=== PATIENT | male | born 1960 | race African-American/Black ===

== ENCOUNTER 2017-01-18 10:09 | Emergency (ER) | payer MEDICAID ==
[~2017-01-18] VITALS: Ht 172.7 cm; Wt 91.0 kg
[2017-01-18] MEDS ORDERED: PROCHLORPERAZINE 10MG/2ML VIAL IV STA ×2 (10:32→10:56)
[2017-01-18] MEDS ORDERED: DIPHENHYDRAMINE 50MG/ML VIAL IV ONE (10:45)
[2017-01-18 10:52] LABS: BASOPHILS % 0.4 % (0.0-2.0); HEMATOCRIT. 47.7 % (42.0-52.0); HEMOGLOBIN. 15.8 g/dL (14.0-18.0); LYMPHOCYTES % 20.7 % (20.0-50.0); MEAN CORPUSCULAR HEMOGLOBIN 30.6 pg (28.0-32.0); MEAN CORPUSCULAR VOLUME 92.2 fL (80.0-94.0); MEAN PLATELET VOLUME 7.3 fl (7.4-10.4); MONOCYTES % 7.1 % (2.0-8.0); NEUTROPHILS % 70.8 % (40.0-76.0); PLATELET 247 x1000/uL (130-400); RED BLOOD CELL COUNT 5.18 mill/uL (4.7-6.1); RED CELL DISTRIBUTION WIDTH 13.8 % (11.6-14.6)
[2017-01-18 11:10] LABS: CARBON DIOXIDE 28 mEq/L (21-32); CHLORIDE 97 mEq/L (98-107); ETHANOL BLOOD 122 mg/dL; TROPONIN I < 0.02 ng/mL (0.00-0.04)
[2017-01-18] MEDS ORDERED: IBUPROFEN 400MG TABLET PO ONE (13:00)
[2017-01-18] MEDS ORDERED: POTASSIUM CHLORIDE 20MEQ TABLET SR PO ONE (13:00)
[2017-01-18 14:15] VITALS: BP 109/62
== END 2017-01-18 14:19 | disposition home or self-care (01) ==
LOC: EDSEX 10:09 → ER 10:45
DX: R51 Headache (principal); I10 Essential (primary) hypertension
CPT/HCPCS: 36415; 70450; 80053; 83880; 84484; 85025; 93005; 96374; 96375; 99285; G0482; J0780; J1200; Z7610

== ENCOUNTER 2017-07-05 13:00 | Emergency (ER) | payer MEDICAID ==
[~2017-07-05] VITALS: Ht 172.7 cm; Wt 98.0 kg
[2017-07-05] MEDS ORDERED: IPRATROPIUM/ALBUTEROL 0.5-3(2.5)MG/3ML NEB HHN ONE (13:15)
[2017-07-05 13:38] LABS: BASOPHILS % 0.4 % (0.0-2.0); EOSINOPHILS % 0.1 % (0.0-5.0); HEMATOCRIT. 46.8 % (42.0-52.0); MEAN CORPUSCULAR HEMOGLOBIN 30.2 pg (28.0-32.0); MEAN CORPUSCULAR VOLUME 88.4 fL (80.0-94.0); MEAN PLATELET VOLUME 7.1 fl (7.4-10.4); MONOCYTES % 9.7 % (2.0-8.0); NEUTROPHILS % 56.8 % (40.0-76.0); PLATELET 265 x1000/uL (130-400); RED CELL DISTRIBUTION WIDTH 14.1 % (11.6-14.6)
[2017-07-05 13:41] LABS: PROTHROMBIN TIME 10.6 sec (9.4-11.6)
[2017-07-05 13:53] LABS: CARBON DIOXIDE 28 mEq/L (21-32); CHLORIDE 95 mEq/L (98-107); ETHANOL BLOOD 200 mg/dL; TROPONIN I < 0.02 ng/mL (0.00-0.04)
[2017-07-05 18:18] LABS: CLARITY URINE CLOUDY (CLEAR); COLOR URINE YELLOW (YELLOW); KETONES URINE TRACE (NEGATIVE); LEUKOCYTE ESTERASE URINE 3+ (NEGATIVE); NITRITE URINE NEGATIVE (NEGATIVE); OCCULT BLOOD URINE TRACE (NEGATIVE); PH URINE 6.5 (4.5-8.0); PROTEIN URINE NEGATIVE (NEGATIVE); SPECIFIC GRAVITY URINE 1.009 (1.005-1.030); UROBILINOGEN URINE 0.2 E.U./dL (0.2-1.0)
[2017-07-05 18:41] LABS: *AMPHETAMINES SCREEN URINE PRESUMTIVE POSITIVE (NEGATIVE); *BARBITURATES SCREEN URINE NEGATIVE (NEGATIVE); *BENZODIAZEPINES SCREEN URINE NEGATIVE (NEGATIVE); *COCAINE SCREEN URINE PRESUMTIVE POSITIVE (NEGATIVE); CANNABINOID URINE SCREEN NEGATIVE (NEGATIVE); METHADONE URINE SCREEN NEGATIVE (NEGATIVE); OPIATES URINE SCREEN NEGATIVE (NEGATIVE); PHENCYCLIDINE URINE SCREEN NEGATIVE (NEGATIVE)
[2017-07-05] MEDS ORDERED: CEFTRIAXONE SODIUM 250 MG/VIAL IM ONE (19:15)
[2017-07-05] MEDS ORDERED: AZITHROMYCIN 500 MG TABLET PO ONE (19:15)
[2017-07-05 19:50] VITALS: BP 109/65
[2017-07-10 08:19] LABS: CHLAMYDIA TRACHOMATIS NAA Negative (Negative); NEISSERIA GONORRHOEAE NAA Negative (Negative)
== END 2017-07-05 19:50 | disposition home or self-care (01) ==
LOC: ER 13:00
DX: S16.1XXA Strain of muscle, fascia and tendon at neck level, initial encounter (principal); N34.2 Other urethritis; A64 Unspecified sexually transmitted disease; K21.9 Gastro-esophageal reflux disease without esophagitis; R06.02 Shortness of breath; I10 Essential (primary) hypertension; F10.229 Alcohol dependence with intoxication, unspecified; F10.129 Alcohol abuse with intoxication, unspecified; X58.XXXA Exposure to other specified factors, initial encounter; Y93.89 Activity, other specified; Y92.89 Other specified places as the place of occurrence of the external cause; Y99.8 Other external cause status; R51 Headache
CPT/HCPCS: 36415; 71045; 72050; 80053; 80305; 81001; 83690; 83880; 84484; 85025; 85610; 87086; 87491; 87591; 93005; 94640; 96372; 99285; G0482; J0696; J7620

== ENCOUNTER 2017-10-23 14:50 | Emergency (ER) | payer MEDICAID ==
[~2017-10-23] VITALS: Ht 170.2 cm; Wt 75.0 kg
[2017-10-23] MEDS ORDERED: SODIUM CHLORIDE 0.9% 1,000 ML IV ONE ×2 (16:59→20:44)
[2017-10-23] MEDS ORDERED: ONDANSETRON HCL 4MG/2ML VIAL IV STA ×2 (16:59→20:48)
[2017-10-23] MEDS ORDERED: MORPHINE SULFATE 4 MG/ML CPJ (NOT FOR IM USE) IV STA ×2 (16:59→20:48)
[2017-10-23] MEDS ORDERED: ETOMIDATE 2MG/ML 10ML VIAL IV ONE ×2 (17:15→19:00)
[2017-10-23] MEDS ORDERED: MORPHINE SULFATE 4 MG/ML CPJ (NOT FOR IM USE) IV ONE (17:15)
[2017-10-23] MEDS ORDERED: ONDANSETRON HCL 4MG/2ML VIAL IV ONE (17:15)
[2017-10-23] MEDS ORDERED: MIDAZOLAM HCL 2 MG/2 ML VIAL ONE (18:50)
[2017-10-23] MEDS ORDERED: FENTANYL CITRATE/PF 50MCG/ML 2ML VIAL ONE (18:50)
[2017-10-23] MEDS ORDERED: MIDAZOLAM HCL 2 MG/2 ML VIAL IV ONE (19:00)
[2017-10-23] MEDS ORDERED: FENTANYL CITRATE/PF 50MCG/ML 2ML VIAL IV ONE (19:00)
[2017-10-23] MEDS ORDERED: HYDROCODONE/ACETAMINOPHEN 5/325MG TABLET PO ONE (20:30)
[2017-10-23 21:27] LABS: BASOPHILS % 0.2 % (0.0-2.0); HEMATOCRIT. 45.6 % (42.0-52.0); HEMOGLOBIN. 15.7 g/dL (14.0-18.0); LYMPHOCYTES % 8.5 % (20.0-50.0); MEAN CORPUSCULAR HEMOGLOBIN 30.8 pg (28.0-32.0); MEAN CORPUSCULAR VOLUME 89.4 fL (80.0-94.0); MEAN PLATELET VOLUME 7.3 fl (7.4-10.4); MONOCYTES % 3.6 % (2.0-8.0); NEUTROPHILS % 87.7 % (40.0-76.0); PLATELET 267 x1000/uL (130-400); RED CELL DISTRIBUTION WIDTH 14.4 % (11.6-14.6)
[2017-10-23 21:30] LABS: CHLORIDE 97 mEq/L (98-107)
[2017-10-23 21:35] LABS: INR 1.1; PARTIAL THROMBOPLASTIN TIME 25.9 sec (23.4-31.0); PROTHROMBIN TIME 11.2 sec (9.4-11.6)
[2017-10-23 21:45] VITALS: BP 128/85
[2017-10-23] MEDS ORDERED: POTASSIUM CHLORIDE 20MEQ TABLET SR PO STA (21:50)
[2017-10-23] MEDS ORDERED: KCL 20MEQ/100ML PREMIX 100 ML IV ONE (22:00)
== END 2017-10-23 23:31 | disposition short-term general hospital (02) ==
LOC: ER 15:04
DX: S43.015A Anterior dislocation of left humerus, initial encounter (principal); I10 Essential (primary) hypertension; F10.20 Alcohol dependence, uncomplicated; E87.6 Hypokalemia; W18.39XA Other fall on same level, initial encounter; Y93.89 Activity, other specified; Y92.89 Other specified places as the place of occurrence of the external cause; Y99.8 Other external cause status
CPT/HCPCS: 23650; 36415; 71045; 73030; 80053; 85025; 85610; 85730; 86850; 86900; 86901; 93005; 96361; 96365; 96375; 96376; 99152; 99153; 99285; J2250; J2270; J2405; J3010; J3480; J3490; J7030; Z7610; L3670

== ENCOUNTER 2018-07-01 05:33 | Inpatient (IN) | payer MEDICAID ==
[~2018-07-01] VITALS: Ht 167.6 cm; Wt 96.3 kg
[~2018-07-01 05:33] MED LIST: LACTATED RINGERS 1,000 ML IV SCH
[2018-07-01 06:36] LABS: CLARITY URINE CLEAR (CLEAR); COLOR URINE YELLOW (YELLOW); KETONES URINE NEGATIVE (NEGATIVE); LEUKOCYTE ESTERASE URINE NEGATIVE (NEGATIVE); NITRITE URINE NEGATIVE (NEGATIVE); OCCULT BLOOD URINE NEGATIVE (NEGATIVE); PROTEIN URINE NEGATIVE (NEGATIVE); SPECIFIC GRAVITY URINE 1.004 (1.005-1.030); UROBILINOGEN URINE 0.2 E.U./dL (0.2-1.0)
[2018-07-01] MEDS ORDERED: OMEP20CA10 PO (09:01)
[2018-07-01] MEDS ORDERED: MECL-127 PO (09:01)
[2018-07-01] MEDS ORDERED: TRAM50TA3 PO (09:01)
[2018-07-01] MEDS ORDERED: FURO40TA5 PO (09:01)
[2018-07-01] MEDS ORDERED: AMLO5TAB88 PO (09:01)
[2018-07-01] MEDS ORDERED: PROPOFOL 200MG/20ML VIAL IV ONE ×2 (10:14→15:48)
[2018-07-01] MEDS ORDERED: FENTANYL CITRATE/PF 50MCG/ML 5ML VIAL ONE (10:14)
[2018-07-01] MEDS ORDERED: ROCURONIUM BROMIDE 10MG/ML VIAL 5ML IV ONE (10:14)
[2018-07-01] MEDS ORDERED: MIDAZOLAM HCL 2 MG/2 ML VIAL ONE (10:15)
[2018-07-01] MEDS ORDERED: LIDOCAINE HCL/PF 1% 10 MG/ML 5ML VIAL ONE (10:20)
[2018-07-01] MEDS ORDERED: BUPIVACAINE/EPINEPH/PF 0.25%/0.0005 10ML ONE (10:57)
[2018-07-01] MEDS ORDERED: EPINEPHRINE 1:1000 1 MG/ML AMP ONE ×2 (10:58→11:25)
[2018-07-01] MEDS ORDERED: MORPHINE SULFATE/PF 1MG/ML 10ML AMP ONE (10:58)
[2018-07-01] MEDS ORDERED: ROPIVACAINE HCL 10MG/ML 20 ML VIAL EPI ONE (11:04)
[2018-07-01] MEDS ORDERED: CEFAZOLIN SODIUM 1000MG/VIAL ONE (12:18)
[2018-07-01] MEDS ORDERED: LABETALOL HCL 5MG/ML VIAL 20ML IV ONE (15:02)
[2018-07-01] MEDS ORDERED: ESMOLOL HCL 10MG/ML 10ML VIAL IV ONE (15:03)
[2018-07-01] MEDS ORDERED: NEOSTIGMINE METHYLSULFATE 1MG/ML 10 ML VIAL ONE (15:28)
[2018-07-01] MEDS ORDERED: GLYCOPYRROLATE 0.2 MG/ML 2ML VIAL ONE (15:28)
[2018-07-01] MEDS ORDERED: ACETAMINOPHEN 325MG TABLET PO PRN (16:45)
[2018-07-01] MEDS ORDERED: HYDROCODONE/ACETAMINOPHEN 10/325MG TABLET PO PRN ×2 (16:45)
[2018-07-01] MEDS ORDERED: ONDANSETRON HCL 4MG TABLET PO PRN (16:45)
[2018-07-01] MEDS ORDERED: ZOLPIDEM TARTRATE 5MG TABLET PO PRN (16:45)
[2018-07-01] MEDS ORDERED: NALOXONE INJ IV PRN (18:15)
[2018-07-01] MEDS ORDERED: HYDROMORPHONE PCA 10MG/50ML IV PRN (18:15)
[2018-07-01] MEDS: ONDANSETRON INJ IV PRN (19:27)
[2018-07-01 20:00] VITALS: BP 140/93
[2018-07-01] MEDS ORDERED: CEFAZOLIN 2,000 MG in DEXT 5% WATER 100 ML IV SCH (21:00)
[2018-07-02] VITALS (7 sets, daily range): BP systolic 123–147; BP diastolic 83–98
[2018-07-02] MEDS: CEFAZOLIN 2,000 MG in DEXT 5% WATER 100 ML IV SCH ×3 (01:48→17:39)
[2018-07-02] MEDS: OMEPRAZOLE 20MG CAPSULE EXTENDED RELEASE PO SCH (06:40)
[2018-07-02 07:07] LABS: BASOPHILS % 0.3 % (0.0-2.0); EOSINOPHILS % 0.1 % (0.0-5.0); HEMATOCRIT. 40.4 % (42.0-52.0); HEMOGLOBIN. 13.5 g/dL (14.0-18.0); MEAN CORPUSCULAR HEMOGLOBIN 31.5 pg (28.0-32.0); MEAN CORPUSCULAR VOLUME 94.5 fL (80.0-94.0); MEAN PLATELET VOLUME 7.5 fl (7.4-10.4); MONOCYTES % 9.2 % (2.0-8.0); NEUTROPHILS % 78.4 % (40.0-76.0); PLATELET 165 x1000/uL (130-400); RED BLOOD CELL COUNT 4.28 mill/uL (4.7-6.1); RED CELL DISTRIBUTION WIDTH 14.2 % (11.6-14.6)
[2018-07-02 07:47] LABS: CHLORIDE 99 mEq/L (98-107)
[2018-07-02] MEDS ORDERED: AMLODIPINE 5MG TABLET PO SCH (09:00)
[2018-07-02] MEDS: FUROSEMIDE 40MG TABLET PO SCH (09:44)
[2018-07-02] MEDS: AMLODIPINE 5MG TABLET PO SCH (09:44)
[2018-07-02] MEDS: CELECOXIB 200MG CAPSULE PO SCH ×2 (09:45→17:39)
[2018-07-02] MEDS: MECLIZINE 25MG TABLET PO SCH (09:45)
[2018-07-02] MEDS: TAMSULOSIN HCL 0.4MG SR CAPSULE PO SCH (12:22)
[2018-07-02] MEDS: ONDANSETRON INJ IV PRN (14:37)
[2018-07-03] VITALS: BP 118/74
[2018-07-03] MEDS: CEFAZOLIN 2,000 MG in DEXT 5% WATER 100 ML IV SCH ×2 (02:10→10:06)
[2018-07-03 04:00] VITALS: BP 126/88
[2018-07-03] MEDS: OMEPRAZOLE 20MG CAPSULE EXTENDED RELEASE PO SCH (06:21)
[2018-07-03 08:00] VITALS: BP 151/91
[2018-07-03] MEDS: TAMSULOSIN HCL 0.4MG SR CAPSULE PO SCH (10:05)
[2018-07-03] MEDS: CELECOXIB 200MG CAPSULE PO SCH (10:05)
[2018-07-03] MEDS: FUROSEMIDE 40MG TABLET PO SCH (10:06)
[2018-07-03] MEDS: AMLODIPINE 5MG TABLET PO SCH (10:06)
[2018-07-03] MEDS: MECLIZINE 25MG TABLET PO SCH (10:06)
[2018-07-03 12:00] VITALS: BP 105/84
== END 2018-07-03 18:05 | disposition home or self-care (01) | DRG 315 ==
LOC: OR 05:33 → 6EST 23:25
PROVIDERS: ADMIT Orthopaedic Surgery; ATTEND Orthopaedic Surgery
PROC: 0RQK4ZZ Repair Left Shoulder Joint, Percutaneous Endoscopic Approach (ICD-10-PCS; principal; 2018-07-01)
PROC: 0MB24ZZ Excision of Left Shoulder Bursa and Ligament, Percutaneous Endoscopic Approach (ICD-10-PCS; 2018-07-01)
DX: M24.412 Recurrent dislocation, left shoulder (principal); F10.20 Alcohol dependence, uncomplicated; M75.102 Unspecified rotator cuff tear or rupture of left shoulder, not specified as traumatic; M24.012 Loose body in left shoulder; M94.212 Chondromalacia, left shoulder; M19.012 Primary osteoarthritis, left shoulder; M25.312 Other instability, left shoulder; M71.9 Bursopathy, unspecified; M65.9 Synovitis and tenosynovitis, unspecified; F41.9 Anxiety disorder, unspecified; K21.9 Gastro-esophageal reflux disease without esophagitis; I10 Essential (primary) hypertension; R31.0 Gross hematuria; R33.9 Retention of urine, unspecified; Z91.81 History of falling
CPT/HCPCS: 36415; 71045; 80048; 88304; 88311; 97166; 97530; 97535; A4565; C1713; J0171; J0690; J1170; J2250; J2274; J2405; J2704; J2710; J2795; J3010; J3490; J7060; J8597; A4315

== ENCOUNTER 2019-08-23 17:27 | Emergency (ER) | payer MEDICAID ==
[~2019-08-23] VITALS: Ht 172.7 cm; Wt 100.0 kg
[~2019-08-23 17:27] MED LIST changes: +AMLO5TAB88 PO; +FURO40TA5 PO; -LACTATED RINGERS 1,000 ML IV SCH; +MECL-127 PO; +OMEP20CA14 PO; +TRAM50TA3 PO
[2019-08-23 18:52] LABS: BASOPHILS % 0.6 % (0.0-2.0); EOSINOPHILS % 2.2 % (0.0-5.0); HEMATOCRIT. 47.1 % (42.0-52.0); HEMOGLOBIN. 15.8 g/dL (14.0-18.0); LYMPHOCYTES % 35.8 % (20.0-50.0); MEAN CORPUSCULAR HEMOGLOBIN 33.4 pg (28.0-32.0); MEAN CORPUSCULAR VOLUME 99.6 fL (80.0-94.0); MEAN PLATELET VOLUME 8.2 fl (7.4-10.4); MONOCYTES % 10.4 % (2.0-8.0); PLATELET 104 x1000/uL (130-400); RED BLOOD CELL COUNT 4.73 mill/uL (4.7-6.1); RED CELL DISTRIBUTION WIDTH 15.5 % (11.6-14.6)
[2019-08-23 18:57] LABS: CHLORIDE 98 mEq/L (98-107)
[2019-08-23 19:01] LABS: PROTHROMBIN TIME 10.7 sec (9.6-11.0)
[2019-08-23 19:06] LABS: CREATINE KINASE 150 IU/L (39-308)
[2019-08-23 19:16] LABS: ETHANOL BLOOD 323 mg/dL
[2019-08-23] MEDS ORDERED: SODIUM CHLORIDE 0.9% 1,000 ML IV ONE (19:17)
[2019-08-23] MEDS ORDERED: ONDANSETRON HCL 4MG/2ML INJ IV ONE (19:30)
[2019-08-23 20:50] LABS: CLARITY URINE CLEAR (CLEAR); COLOR URINE YELLOW (YELLOW); KETONES URINE NEGATIVE (NEGATIVE); LEUKOCYTE ESTERASE URINE NEGATIVE (NEGATIVE); NITRITE URINE NEGATIVE (NEGATIVE); OCCULT BLOOD URINE NEGATIVE (NEGATIVE); PH URINE 5.5 (4.5-8.0); PROTEIN URINE NEGATIVE (NEGATIVE); SPECIFIC GRAVITY URINE 1.005 (1.005-1.030)
[2019-08-23 21:12] LABS: *AMPHETAMINES SCREEN URINE NEGATIVE (NEGATIVE); *BARBITURATES SCREEN URINE NEGATIVE (NEGATIVE); *BENZODIAZEPINES SCREEN URINE NEGATIVE (NEGATIVE); *COCAINE SCREEN URINE NEGATIVE (NEGATIVE); METHADONE URINE SCREEN NEGATIVE (NEGATIVE)
[2019-08-23 21:13] LABS: CANNABINOID URINE SCREEN NEGATIVE (NEGATIVE); PHENCYCLIDINE URINE SCREEN NEGATIVE (NEGATIVE)
[2019-08-24] MEDS ORDERED: SODIUM CHLORIDE 0.9% 1,000 ML IV ONE (00:43)
[2019-08-24 03:12] VITALS: BP 115/71
[2019-08-24 18:34] LABS: OPIATES URINE SCREEN NEGATIVE (NEGATIVE)
== END 2019-08-24 03:14 | disposition home or self-care (01) ==
LOC: ER 17:27
DX: F10.129 Alcohol abuse with intoxication, unspecified (principal); Y90.8 Blood alcohol level of 240 mg/100 ml or more; I11.0 Hypertensive heart disease with heart failure; I50.9 Heart failure, unspecified
CPT/HCPCS: 36415; 70450; 71045; 80053; 80305; 80320; 81003; 82140; 82550; 82962; 83690; 83880; 84484; 85025; 85610; 93005; 96361; 96374; 99285; J2405; J7030; G0480

== ENCOUNTER 2021-05-04 18:36 | Emergency (ER) | payer MEDICAID ==
[~2021-05-04] VITALS: Ht 170.2 cm; Wt 80.0 kg
[2021-05-04 21:37] LABS: BASOPHILS % 0.6 % (0.0-2.0); EOSINOPHILS % 2.5 % (0.0-5.0); HEMATOCRIT. 43.5 % (42.0-52.0); HEMOGLOBIN. 14.5 g/dL (14.0-18.0); LYMPHOCYTES % 34.1 % (20.0-50.0); MEAN CORPUSCULAR HEMOGLOBIN 34.5 pg (28.0-32.0); MEAN CORPUSCULAR VOLUME 103.4 fL (80.0-94.0); MEAN PLATELET VOLUME 7.3 fl (7.4-10.4); MONOCYTES % 8.1 % (2.0-8.0); NEUTROPHILS % 54.7 % (40.0-76.0); PLATELET 191 x1000/uL (130-400); RED CELL DISTRIBUTION WIDTH 16.6 % (11.6-14.6)
[2021-05-04 21:43] LABS: CHLORIDE 103 mEq/L (98-107)
[2021-05-04 21:48] LABS: ETHANOL BLOOD 261 mg/dL
[2021-05-04] MEDS ORDERED: ASPIRIN 81MG TABLET PO ONE (22:15)
[2021-05-05 01:30] VITALS: BP 121/75
== END 2021-05-05 02:17 | disposition short-term general hospital (02) ==
LOC: ER 18:36
DX: R55 Syncope and collapse (principal); I20.0 Unstable angina; I10 Essential (primary) hypertension; Z98.890 Other specified postprocedural states
CPT/HCPCS: 36415; 71045; 80053; 80320; 82962; 83880; 84484; 85025; 93005; 99285; G0480

== ENCOUNTER 2022-09-24 15:03 | Emergency (ER) | payer MEDICAID, OTHER ==
[~2022-09-24] VITALS: Ht 170.2 cm; Wt 64.0 kg
[2022-09-24 16:23] LABS: BASOPHILS % 0.4 % (0.0-2.0); EOSINOPHILS % 1.4 % (0.0-5.0); HEMATOCRIT. 43.1 % (42.0-52.0); HEMOGLOBIN. 14.6 g/dL (14.0-18.0); LYMPHOCYTES % 25.8 % (20.0-50.0); MEAN CORPUSCULAR HEMOGLOBIN 34.4 pg (28.0-32.0); MEAN CORPUSCULAR VOLUME 101.5 fL (80.0-94.0); MEAN PLATELET VOLUME 7.7 fl (7.4-10.4); MONOCYTES % 6.6 % (2.0-8.0); NEUTROPHILS % 65.8 % (40.0-76.0); PLATELET 236 x1000/uL (130-400); RED BLOOD CELL COUNT 4.25 mill/uL (4.7-6.1); RED CELL DISTRIBUTION WIDTH 16.7 % (11.6-14.6)
[2022-09-24 16:28] LABS: CHLORIDE 101 mEq/L (98-107)
[2022-09-24 16:36] LABS: ETHANOL BLOOD 101 mg/dL
[2022-09-24] MEDS ORDERED: ALBUTEROL (0.5%) 2.5MG/0.5ML NEB HHN NR (16:45)
[2022-09-24] MEDS ORDERED: IPRATROPIUM BROMIDE (0.02%) 0.5MG/2.5ML NEB HHN NR (16:45)
[2022-09-24] MEDS ORDERED: SODIUM CHLORIDE 0.9% 1,000 ML IV ONE (17:15)
[2022-09-24] MEDS ORDERED: GUAIFENESIN 600MG ER TABLET PO NR (18:30)
[2022-09-24 20:01] VITALS: BP 154/100
[2022-09-24] MEDS ORDERED: P20 MT (20:40)
[2022-09-24] MEDS ORDERED: GUAI600T26 MT (20:40)
[2022-09-24] MEDS ORDERED: ALBU6.7H3 INH (20:40)
== END 2022-09-24 21:18 | disposition home or self-care (01) ==
LOC: ER 15:03 → CANBEDREQ 09-25 02:22
DX: J44.1 Chronic obstructive pulmonary disease with (acute) exacerbation (principal); R79.89 Other specified abnormal findings of blood chemistry; I10 Essential (primary) hypertension; Z79.899 Other long term (current) drug therapy
CPT/HCPCS: 36415; 71045; 80053; 80320; 83690; 83880; 84484; 85025; 93005; 94640; 96360; 99285; Z7610; G0480